=== PATIENT | male | born 1995 | race Caucasian/White ===

== ENCOUNTER 2021-12-27 08:52 | Outpatient (CLI) | payer BC, SELFPAY ==
--- NOTE | 2021-12-27 09:02 | EST_ITS ---
Patient Info Name: Kobi Leigh Age: 26 years : 1995 Gender: Male Ht: 77 in Wt: 340 lbs BSA: 2.95 m2 Exam Date: 12/27/2021 9:34 AM [facility] Patient Status: Outpatient Admit Date: 12/27/2021 Staff Ordering Physician: Teo Dotson DO Jointer Machine Operator: Jerzy Redman RDCS, RT Attending Provider: Teo Dotson DO Referring Physician: Mauri ARNDT; Exercise Technologist: Jerzy Redman RDCS, RT Exercise Physician: Teo Dotson DO Exam Type: CA stress echo Study Info Indications R07.9 - Chest pain, unspecified Treadmill exercise stress echocardiogram is performed. Summary 1. 1. Negative Jose Guadalupe exercise stress test for ischemic ST changes by ECG criteria. 2. 2. Reduced functional capacity, achieving 10 METs of workload. 3. 3. Rapid HR response to exercise in first minute of exercise. 4. 4. Appropriate HR recovery at 1 minute post exercise. 5. 5. Negative stress echocardiogram for ischemia by wall motion analysis. 6. 6. Patient informed of the above results. Stress Echo Findings Left Ventricle Appropriate increase in LV endocardial thickening with systole. Appropriate augmentation of contractility with systole. No wall motion abnormality. Left Ventricle Normal LV systolic function, no wall motion abnormality. Protocol: Jose Guadalupe Stress ECG Details Stage: REST Duration (min): 1 min : 1 sec Speed (mph): 0.0 Grade (%): 0 HR (bpm): 90 SBP (mmHg): 123 DBP (mmHg): 75 METS: --- Stage: REST Duration (min): 10 min : 31 sec Speed (mph): 0.0 Grade (%): 0 HR (bpm): 99 SBP (mmHg): 123 DBP (mmHg): 75 METS: --- Stage: STAGE 1 Duration (min): 1 min : 0 sec Speed (mph): 1.7 Grade (%): 10 HR (bpm): 134 SBP (mmHg): 123 DBP (mmHg): 75 METS: --- Stage: STAGE 1 Duration (min): 2 min : 0 sec Speed (mph): 1.7 Grade (%): 10 HR (bpm): 134 SBP (mmHg): 123 DBP (mmHg): 75 METS: --- Stage: STAGE 1 Duration (min): 3 min : 0 sec Speed (mph): 1.7 Grade (%): 10 HR (bpm): 140 SBP (mmHg): 148 DBP (mmHg): 83 METS: --- Stage: STAGE 2 Duration (min): 1 min : 0 sec Speed (mph): 2.5 Grade (%): 12 HR (bpm): 146 SBP (mmHg): 148 DBP (mmHg): 83 METS: --- Stage: STAGE 2 Duration (min): 2 min : 0 sec Speed (mph): 2.5 Grade (%): 12 HR (bpm): 157 SBP (mmHg): 183 DBP (mmHg): 85 METS: --- Stage: STAGE 2 Duration (min): 3 min : 0 sec Speed (mph): 2.5 Grade (%): 12 HR (bpm): 160 SBP (mmHg): 183 DBP (mmHg): 85 METS: --- Stage: STAGE 3 Duration (min): 1 min : 0 sec Speed (mph): 3.4 Grade (%): 14 HR (bpm): 171 SBP (mmHg): 179 DBP (mmHg): 80 METS: --- Stage: STAGE 3 Duration (min): 2 min : 0 sec Speed (mph): 3.4 Grade (%): 14 HR (bpm): 181 SBP (mmHg): 179 DBP (mmHg): 80 METS: --- Stage: STAGE 3 Duration (min): 3 min : 0 sec Speed (mph):
== END 2021-12-27 08:53 | disposition home or self-care (01) ==
LOC: ANHCARD 08:57
PROVIDERS: PCP Family Medicine; Visit Provider Internal Medicine Cardiovascular Disease
DX: R07.9 Chest pain, unspecified (principal)
CPT/HCPCS: 93351

== ENCOUNTER 2022-11-19 12:00 | Outpatient (RCR) | payer BC, SELFPAY ==
--- NOTE | 2022-09-25 14:14 | PTOPEVAL1 ---
Assessment and note entered by Krystle Vasquez, PT Evaluation Information Assessment Status Evaluation Diagnosis Pain in left knee Subjective Information Pain comes and goes, states started a couple years ago. Remembers a loud pop in knee a couple years ago while at work. Left work and had it checked out but they didn't find anything. Reported Pain Level Pain Score 2: Self Report Assessment PT Clinical Summary Pt presents with history of on and off pain in both knees but currently the left is worst. Pt demo's significant LLE pronated foot and increased knee valgus angle, increased external rotation LLE in gait, abnormal spinal alignment. Pt will benefit from physical therapy to address alignment and stress on knee to improve function without pain Plan of Care Interventions Electrical Stimulation,Gait Training,Hot Pack/Cold Pack,Manual Therapy,Neuro Re-education,Prosthetic Training,Therapeutic Activities,Therapeutic Exercise,Ultrasound PT Services Indicated Yes Treatment Frequency and 4 visits in 6 weeks as needed Duration These treatments will address the objective and functional deficits as defined above. The patient will be advanced safely and appropriately in order for the patient to progress towards his/her prior level of function. Additional exercises will be introduced and as well as a comprehensive home exercise program upon discharge, if needed, ?to ensure carryover of functional gains achieved in the clinic. This treatment plan has been reviewed and agreement upon by the patient.
--- NOTE | 2022-09-25 14:15 | OPREHPOC ---
Outpatient Therapy Plan of Care This is a Multidisciplinary Plan of Care that may contain components documented by all disciplines (PT, OT, and ST.) PT Problem 1 PT Problem #1 Knowledge Deficit PT Goal 1 Goal Pt will verbalize understanding of diagnosis and prognosis Target Visit 4 PT Goal 2 Goal Pt will report having found appropriate shoe inserts for ankle/knee alignment Target Visit 8 PT Problem 2 PT Problem #2 Pain PT Goal 1 Goal Pt will report decrease in ashley nby 50% Target Visit 4 PT Goal 2 Goal Pt will report resolution of pain Target Visit 8 PT Problem 3 PT Problem #3 Impaired Endurance PT Goal 1 Goal Pt will report ability to wear shoe inserts entire day without discomfort and pain
--- NOTE | 2022-10-11 08:00 | PCPTNOTE ---
Patient called & cancelled scheduled appointment this date. Left a message on voicemail and did not give a reason. Stated he would call back to reschedule at a later time.
--- NOTE | 2022-11-14 10:47 | PCPTNOTE ---
Patient called & cancelled scheduled appointment this date due to being called into work
--- NOTE | 2022-11-27 16:03 | PCPTNOTE ---
Patient called & cancelled scheduled appointment this date due to work meeting
--- NOTE | 2022-12-06 17:23 | PTOPDC ---
Assessment and note entered by Krystle Vasquez, PT Assessment Status Discharge - Pt Not Present Diagnosis Pain in left knee, pain in right knee Assessment PT Clinical Summary Spoke with patient. Through therapy pt has performed activities as directed including approriate shoewear, cryotherapy, and activity modification. Unfortunately he was not able to be consistent in his treatments due to scheduling conflicts and work issues. However, pt also has not made significant progress with therapy. Based on alignment and special testing during evaluation , pt will benefit from additional imaging to assess internal knee structures bilaterally. Thus as patient has a new employer and has made minimal benefit with therapy, he is being referred back to primary care with suggestion of imaging and possibly ortho referral.
== END 2022-12-07 10:13 | disposition home or self-care (01) ==
LOC: ANHHIPT 12:00
PROVIDERS: PCP Family Medicine; Visit Provider Family Medicine
DX: M25.562 Pain in left knee (principal)
CPT/HCPCS: 97014; 97110; 97112; 97140; 97161; 97530; G0283

== ENCOUNTER 2023-10-09 11:34 | Emergency (ER) | payer BC, SELFPAY ==
[2023-10-09 11:49] VITALS: BP 124/74; PULSE 78; RESP 16; TEMP 36.3; O2SAT 99
--- NOTE | 2023-10-09 13:06 | ED.EYEPROB ---
HPI - Eye Problem General Chief complaint: Eye Problems Stated complaint: LT Eye irration Time Seen by Provider: 10/09/23 12:00 History of Present Illness HPI Narrative: Patient presents with complaints of left eye pain and redness. He reports that he got dirt in his eye while at work yesterday. He denies any other injury or trauma. He reports excessive tearing, photophobia. He typically wears contacts, he took them out yesterday when symptoms began. He has been wearing glasses ever since. He has not called his office professional. He denies any visual disturbances. He voices no other concerns or complaints today. Related Data Allergies Allergy/AdvReac Type Severity Reaction Status Date / Time meloxicam AdvReac Mild Rash Verified 10/09/23 11:41 Review of Systems Review of Systems: All systems reviewed & are unremarkable except as noted in HPI and below Constitutional: Constitutional: Reports no additional constitutional complaints Eyes: Eyes: Reports as per HPI and Reports no additional eye complaints ENT: Reports system reviewed and no additional complaints, except as documented Cardiovascular: Cardiovascular: Reports no additional cardiovascular complaints Respiratory: Respiratory: Reports no additional respiratory complaints Gastrointestinal: Gastrointestinal: Reports no additional gastrointestinal complaints [facility] Past Medical History Medical History Annual physical exam Chest pain Encounter for screening for malignant neoplasm of prostate Left knee pain Shortness of breath Surgical History Surgical History No history of previous surgery Family History Family History Father Diabetes mellitus Hypertension Mother Diabetes mellitus Hypertension Heart disease Thyroid disorder Grandparent Diabetes mellitus Hypertension Social History Social History Smoking status: Never smoker Tobacco type: smokeless tobacco Smokeless tobacco user: chewing tobacco Alcohol intake: never Substance use: never Substance use type: does not use Do You Feel Safe in your Home?: Yes Lack of Transportation: No Lack of Food: Never True Current Housing: I Have Housing Concerned About Future Housing: No Difficulty Paying Gas/Electric Bills: No Difficulty Paying for Meds: No Currently Unemployed: No Education: High School Diploma/GED Difficulty w/ Childcare or Family Care: Decline to Answer Living arrangements: with family Occupation/Education: occupation 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 [employer] Gender identity (if verbalized by the patient): Male Sexual Orientation (if Verbalized by the Patient): Straight or Heterosexual Agree to blood products: Yes Exam Const: General: cooperative, no acute distress, alert and awake Orientation/consciousness: oriented to person, oriented to place and oriented to time HENMT: Head: normal to inspection Eyes: Visual Leonardo: normal visual leonardo by confrontation Alignment and Position: alignment normal Eyelids: eyelids normal Conjunctivae: conjunctivae normal Sclera: sclerae normal Cornea: corneas abnormal on the left abrasion linear and at the following clock position (9) and fluorescein used Pupils: Equal, round and reactive pupils present Resp: Effort & Inspection: normal respiratory effort and able to speak in complete sentences Auscultation: clear to auscultation bilaterally, no crackles, no rales, no rhonchi and no wheezes Cardio: Palpation: normal PMI Rate: regular rate Rhythm: regular rhythm Heart sounds: S1 normal heart sound present and S2 normal heart sound present Neuro: General: oriented to person, oriented to place and oriented to time Cranial nerves: Yes CN's II-XII intact
== END 2023-10-09 12:18 | disposition home or self-care (01) ==
PROVIDERS: Emergency Provider Nurse Practitioner Family
DX: S05.02XA Injury of conjunctiva and corneal abrasion without foreign body, left eye, initial encounter (principal); X58.XXXA Exposure to other specified factors, initial encounter; F17.220 Nicotine dependence, chewing tobacco, uncomplicated
CPT/HCPCS: 99213; A9270; G0463